=== PATIENT | female | born 1990 ===

== ENCOUNTER 2016-08-18 17:02 | Emergency (ER) | payer OTHER ==
[2016-08-18 17:07] VITALS: BP 157/82; PULSE 78; RESP 16; TEMP 98.2; O2SAT 98
[2016-08-18] MEDS ORDERED: Alum-Mag Hydrox-Simethicone Susp (30 mL) PO STA (17:28)
[2016-08-18] MEDS ORDERED: Pantoprazole 40 mg EC Tab PO STA (17:28)
[2016-08-18] MEDS ORDERED: Alum-Mag Hydrox-Simethicone Susp (30 mL) ONE (17:41)
[2016-08-18] MEDS ORDERED: Pantoprazole 40 mg EC Tab PO ONE (17:41)
[2016-08-18 17:50] LABS: BASO # 0.1 K/uL (0.0-0.2); BASO % 0.8 % (0.0-2.0); EOS # 0.1 K/uL (0.0-0.7); EOS % 1.4 % (0.0-4.0); HEMATOCRIT 39.8 % (34.0-47.0); LYMPH % 32.2 % (20.0-40.0); MEAN CELL VOLUME 83.1 fl (81.0-99.0); MEAN CORPUSCULAR HEMOGLOBIN 26.7 pg (27.0-31.0); MEAN CORPUSCULAR HGB CONC 32.1 g/dL (33.0-37.0); MEAN PLATELET VOLUME 11.2 fl (7.2-11.7); MONO # 0.6 K/uL (0.0-0.8); MONO % 6.5 % (0.0-10.0); NEUT # 5.5 K/uL (1.8-7.0); NEUT % 59.1 % (50.0-75.0); NRBC % 0.2 % (0.0-0.0); RED CELL DISTRIBUTION WIDTH 14.8 % (11.5-14.5); WHITE BLOOD COUNT 9.3 K/uL (4.8-10.8)
[2016-08-18 17:57] LABS: ALB/GLOB RATIO 1.3 (1.0-2.1); ALKALINE PHOSPHATASE 79 U/L (38-126); ALT/SGPT 33 U/L (9-52); AST/SGOT 25 U/L (14-36); BILIRUBIN,TOTAL 0.9 mg/dl (0.2-1.3); BLOOD UREA NITROGEN 14 mg/dl (7-17); CALCIUM 9.8 mg/dL (8.4-10.2); CARBON DIOXIDE 22 mmol/L (22-30); CHLORIDE 105 mmol/L (98-107); GFR AFRICAN-AMERICAN > 60; GLUCOSE,RANDOM 91 mg/dL (65-105); LIPASE 558 U/L (23-300); POTASSIUM 3.8 MMOL/L (3.6-5.0); SODIUM 145 mmol/l (132-148); TOTAL PROTEIN 8.5 G/DL (6.3-8.2)
--- NOTE | 2016-08-18 18:12 | ED PDOC ---
HPI: Abdomen Time Seen by Provider: 08/18/16 17:19 Chief Complaint (Nursing): Abdominal Pain Chief Complaint (Provider): Abdominal Pain History/Exam Limitations: no limitations Onset/Duration Of Symptoms: Days (x1), Waxing/Waning, Intermittent Episodes Current Symptoms Are (Timing): Still Present Location Of Pain/Discomfort: RUQ Quality Of Discomfort: Sharp, Burning Associated Symptoms: Nausea. denies: Fever, Chills, Vomiting, Diarrhea, Loss Of Appetite, Urinary Symptoms Exacerbating Factors: None Alleviating Factors: None Additional Complaint(s): 26 year old female presents to ED with complaints of abdominal pain x1 day and has a past medical history of pancreatitis and GERD. Describes the pain as intermittent, waxing and waning, sharp RUQ pain. Further states that when pain intensity is waning, it feels like a burning sensation. Denies any exacerbating or mitigating factors. (+) nausea, (-) decreased appetite, vomiting, diarrhea, constipation, urinary symptoms, fever, or chills. Denies taking any medications. PCP: None GI: Dr. Lara (hasn't seen in 2 years) Past Medical History Reviewed: Historical Data, Nursing Documentation, Vital Signs Vital Signs: Last Vital Signs Temp 98.2 F 08/18/16 17:04 Pulse 78 08/18/16 17:04 Resp 16 08/18/16 17:04 BP 157/82 H 08/18/16 17:04 Pulse Ox 98 08/18/16 18:48 - Medical History PMH: GERD, Pancreatitis, Chronic Kidney Disease Denies: No Chronic Diseases - Surgical History Surgical History: ( x1) Denies: Endoscopy - Family History Family History: States: No Known Family Hx - Social History Current smoker - smoking cessation education provided: No Ex-Smoker (has not smoked in the last 12 months): No Alcohol: None Drugs: Denies - Home Medications Home Medications: Ambulatory Orders Medication Instructions Recorded Sulfamethoxazole/Trimethoprim 1 tab PO BID #12 tab 11/06/15 [Bactrim DS 800 mg-160 mg] Ciprofloxacin [Cipro] 1 tab PO BID #14 tab 08/18/16 Ondansetron ODT [Zofran ODT] 1 odt PO Q6 PRN #30 odt 08/18/16 Pantoprazole [Protonix] 40 mg PO DAILY #30 ect 08/18/16 metroNIDAZOLE [Flagyl] 500 mg PO TID #30 tab 08/18/16 traMADol [Ultram] 50 mg PO TID PRN #15 dose 08/18/16 - Allergies Allergies/Adverse Reactions: Allergies Allergy/AdvReac Type Severity Reaction Status Date / Time No Known Allergies Allergy Verified 11/06/15 07:52 Review of Systems ROS Statement: Except As Marked, All Systems Reviewed And Found Negative Constitutional: Negative for: Fever, Chills Gastrointestinal: Positive for: Nausea, Abdominal Pain. Negative for: Vomiting , Diarrhea, Constipation, Other (decreased appetite) Genitourinary Female: Negative for: Dysuria, Frequency, Incontinence, Hematuria Physical Exam - Reviewed Nursing Documentation Reviewed: Yes Vital Signs Reviewed: Yes - Physical Exam Appears: Positive for: Non-toxic, In Acute Distress (mild painful distress) Head Exam: Positive for: ATRAUMATIC Skin: Positive for: Normal Color, Warm, Dry Eye Exam: Positive for: Normal appearance, EOMI, PERRL ENT: Positive for: Normal ENT Inspection Neck: Positive for: Normal Cardiovascular/Chest: Positive for: Regular Rate, Rhythm. Negative for: Murmur Respiratory: Positive for: Normal Breath Sounds. Negative for: Respiratory Distress Gastrointestinal/Abdominal: Positive for: Soft, Tenderness (RUQ TTP), Other ((+ ) Ortiz's, (-)McBurney's). Negative for: Distended Back: Positive for: Normal Inspection Extremity: Positive for: Normal ROM Neurologic/Psych: Positive for: Alert, Oriented. Negative for: Motor/Sensory Deficits - Laboratory Results Result Diagrams: 08/18/16 17:30 08/18/16 17:30 Urine dip results: Positive for: Ketones - ECG O2 Sat by Pulse Oximetry: 98 (RA) Pulse Ox Interpretation: Normal Medical Decision Making Medical Decision Makin Initial impression: RUQ pain DDx: Cholelithiasis, cholecystitis, pancreatitis, PUD, gastritis, hepatitis Initial plan: * Labs * Lipase * PTT/PT * Lidocaine 2% Viscous 10mL PO * Maalox Plus 30mL PO * Protonix EC Tab 40mg PO * Zofran Inj 4mg IVP * US ABDOMEN COMPLETE * Re-eval 1750 Urine shows trace ketones. Labs demonstrated mildly elevated lipase, otherwise no clinically significant lab abnormalities. GI cocktail did not improve meds. Pain improved after toradol and morphine. DW pt findings and plan of care. Strongly advised f/u Marco (GI), strict liquid diet. Rx Tramadol, Zofan, Protonix, Cipro, Flagyl. Scribe Attestation: Documented by Nohemi Soni acting as a scribe for Soraida Woodard MD. Scribe Attestation: All medical record entries made by the Scribe were at my direction and personally dictated by me. I have reviewed the chart and agree that the record accurately reflects my personal performance of the history, physical exam, medical decision making, and the department course for this patient. I have also personally directed, reviewed, and agree with the discharge instructions and disposition. Disposition - Clinical Impression Clinical Impression: Abdominal pain, Pancreatitis - Disposition Referrals: Kei Lara MD, PhD [Staff Provider] - Disposition: Routine/Home Disposition Time: 18:30 Condition: IMPROVED Additional Instructions: LIQUID DIET FOR 48 HOURS FOLLOW UP WITH DR LARA IN 1-2 DAYS RETURN TO ER FOR WORSENING SYMPTOMS Prescriptions: Ciprofloxacin [Cipro] 1 tab PO BID #14 tab metroNIDAZOLE [Flagyl] 500 mg PO TID #30 tab Pantoprazole [Protonix] 40 mg PO DAILY #30 ect traMADol [Ultram] 50 mg PO TID PRN #15 dose PRN Reason: SEVERE PAIN ONLY Ondansetron ODT [Zofran ODT] 1 odt PO Q6 PRN #30 odt PRN Reason: Nausea/Vomiting Instructions: Pancreatitis (ED) Forms: [facility] ED School/Work Excuse
[2016-08-18] MEDS ORDERED: Sodium Chloride 0.9% 1,000 ML IV STA (18:36)
--- NOTE | 2016-08-18 21:28 | US ---
HISTORY: abd pain RUQ COMPARISON: None. TECHNIQUE: Sonographic evaluation of the abdomen. FINDINGS: LIVER: Measures 14 cm. Normal echogenicity of the liver parenchyma. No intrahepatic bile duct dilatation. GALLBLADDER: Gallbladder is near completely collapsed. Apparent wall thickening of the gallbladder could be related to underdistention. No pericholecystic fluid. According to the technologist, the sonographic Ortiz's sign was not present. COMMON BILE DUCT: Measures 2-3 mm. No stones. No dilatation. PANCREAS: Visualized portions of the pancreas appear unremarkable. RIGHT KIDNEY: Measures 12 x 5 x 5.8cm. Normal echogenicity. No calculus, mass, or hydronephrosis. LEFT KIDNEY: Measures 12.8 x 6 x 6cm. Normal echogenicity. No calculus, mass, or hydronephrosis. SPLEEN: Normal in size and contour. No mass. AORTA: No aneurysmal dilatation within the visualized segments of the aorta. IVC: The visualized portions of the IVC appear unremarkable. OTHER FINDINGS: The visualized segments of the portal vein appear patent. IMPRESSION: No acute findings. Contracted gallbladder.
== END 2016-08-18 20:02 | disposition home or self-care (01) ==
LOC: H.ER 17:02
DX: K85.90 Acute pancreatitis without necrosis or infection, unspecified (principal); R11.0 Nausea; K21.9 Gastro-esophageal reflux disease without esophagitis; R10.11 Right upper quadrant pain; N18.9 Chronic kidney disease, unspecified

== ENCOUNTER 2017-08-21 07:46 | Emergency (ER) | payer OTHER ==
[2017-08-21 07:46] VITALS: BMI 32.9
[2017-08-21 07:51] VITALS: BP 129/74; PULSE 100; RESP 20; TEMP 98.9; O2SAT 100
[2017-08-21] MEDS ORDERED: Sodium Chloride 0.9% 1,000 ML IV STA (08:42)
[2017-08-21 09:12] LABS: BASO % 0.5 % (0.0-2.0); EOS # 0.1 K/uL (0.0-0.7); HEMOGLOBIN 12.4 g/dL (12.0-16.0); LYMPH # 0.8 K/uL (1.0-4.3); LYMPH % 9.8 % (20.0-40.0); MEAN CELL VOLUME 81.8 fl (81.0-99.0); MEAN CORPUSCULAR HEMOGLOBIN 27.2 pg (27.0-31.0); MEAN CORPUSCULAR HGB CONC 33.2 g/dL (33.0-37.0); MEAN PLATELET VOLUME 11.8 fl (7.2-11.7); MONO # 0.5 K/uL (0.0-0.8); MONO % 6.5 % (0.0-10.0); NEUT # 6.5 K/uL (1.8-7.0); NEUT % 82.2 % (50.0-75.0); PLATELET COUNT 178 K/uL (130-400); RBC 4.56 Mil/uL (3.80-5.20); RED CELL DISTRIBUTION WIDTH 14.3 % (11.5-14.5); WHITE BLOOD COUNT 7.9 K/uL (4.8-10.8)
--- NOTE | 2017-08-21 09:12 | ED PDOC ---
History of Present Illness History of Present Illness: Xiomara Lakhani is a 27 year old female, with a past medical history of asthma, who presents to the emergency department complaining of body aches, chills, congestion, headache, sore throat and cough onset since this morning. Patient also reports feeling hot but is unsure if she has a fever. She states her dad was sick a few days ago with similar symptoms. She did not receive a flu shot this year. She denies any abdominal pain, nausea, vomit, diarrhea, chest pain or shortness of breath. No further medical complaints. PMD: None provided. HPI: Influenza Time Seen by Provider: 08/21/17 08:20 Chief Complaint: Cough, Cold, Congestion Chief Complaint (Provider): Cough, cold, congestion History Per: Patient Exam Limitations: no limitations Onset/Duration Of Symptoms: Hrs (today) Symptoms include: headache, bodyaches, sore throat, cough, nasal congestion, other (chills). denies: fever, vomiting, diarrhea, chest pain, difficulty breathing Sick Contacts (Context): Family Member(s) (father) Hx Influenza Vaccination: No Past Medical History Reviewed: Historical Data, Nursing Documentation, Vital Signs Vital Signs: Last Vital Signs Temp 98.9 F 08/21/17 07:48 Pulse 100 H 08/21/17 07:48 Resp 20 08/21/17 07:48 BP 129/74 08/21/17 07:48 Pulse Ox 100 08/21/17 07:48 - Medical History PMH: Asthma, GERD, Pancreatitis, Chronic Kidney Disease - Surgical History Surgical History: ( x1) Denies: Endoscopy - Family History Family History: States: Unknown Family Hx - Social History Current smoker - smoking cessation education provided: No Alcohol: None Drugs: Denies - Home Medications Home Medications: Ambulatory Orders Medication Instructions Recorded Oseltamivir [Tamiflu] 75 mg PO BID #10 cap 08/21/17 - Allergies Allergies/Adverse Reactions: Allergies Allergy/AdvReac Type Severity Reaction Status Date / Time No Known Allergies Allergy Verified 11/06/15 07:52 Review of Systems ROS Statement: Except As Marked, All Systems Reviewed And Found Negative Constitutional: Positive for: Chills, Other (body aches). Negative for: Fever ENT: Positive for: Nose Congestion, Throat Pain Cardiovascular: Negative for: Chest Pain Respiratory: Positive for: Cough. Negative for: Shortness of Breath Gastrointestinal: Negative for: Nausea, Vomiting, Abdominal Pain, Diarrhea Neurological: Positive for: Headache Physical Exam - Reviewed Nursing Documentation Reviewed: Yes Vital Signs Reviewed: Yes - Physical Exam Appears: Positive for: Well (comfortable), Non-toxic, No Acute Distress Head Exam: Positive for: ATRAUMATIC, NORMAL INSPECTION, NORMOCEPHALIC Skin: Positive for: Normal Color, Warm, Dry Eye Exam: Positive for: Normal appearance, EOMI, PERRL Neck: Positive for: Painless ROM, Supple Cardiovascular/Chest: Positive for: Regular Rate, Rhythm. Negative for: Murmur Respiratory: Positive for: Normal Breath Sounds (clear to auscultation). Negative for: Respiratory Distress Gastrointestinal/Abdominal: Positive for: Normal Exam, Soft. Negative for: Tenderness, Guarding, Rebound Extremity: Positive for: Normal ROM (upper and lower extremities). Negative for : Tenderness, Deformity, Swelling Neurologic/Psych: Positive for: Alert, Oriented Medical Decision Making Medical Decision Making: Initial Impression: Flu-like symptoms, pharyngitis. Differential includes influenza and strep Initial Plan: --BMP --Urine dipstick --Urine --CBC w/ differential --Tylenol 325 mg tab 650 mg PO --Toradol 30 mg IVP --Sodium Chloride 1,000 ml IV 1,000 mls/hr --Influenza A B --Rapid Strep Group A Antigen --Reevaluation 11:15 -Patient report significant improvement. Tested positive for influenza. Scribe Attestation: Documented by Galo Young, acting as a scribe for Mery Cardona MD Provider Scribe Attestation: All medical record entries made by the Scribe were at my direction and personally dictated by me. I have reviewed the chart and agree that the record accurately reflects my personal performance of the history, physical exam, medical decision making, and the department course for this patient. I have also personally directed, reviewed, and agree with the discharge instructions and disposition. - Laboratory Results Result Diagrams: 08/21/17 09:03 08/21/17 09:03 - ECG O2 Sat by Pulse Oximetry: 100 (RA) Pulse Ox Interpretation: Normal Disposition - Clinical Impression Clinical Impression: Influenza - Patient ED Disposition Is Patient to be Admitted: No Doctor Will See Patient In The: Office Counseled Patient/Family Regarding: Studies Performed, Diagnosis, Need For Followup - Disposition Referrals: [facility] [Outside] Disposition: Routine/Home Disposition Time: 11:20 Condition: GOOD Additional Instructions: Take your medications as instructed. Follow up with your PCP in 2-3 days. Prescriptions: Oseltamivir [Tamiflu] 75 mg PO BID #10 cap Instructions: Flu, Adult (DC) Forms: [facility] ED School/Work Excuse
[2017-08-21 10:53] LABS: BLOOD UREA NITROGEN 9 mg/dl (7-17); CALCIUM 8.8 mg/dL (8.4-10.2); GFR AFRICAN-AMERICAN > 60; GFR NON-AFRICAN AMERICAN > 60
[2017-08-21 11:01] LABS: BASOPHIL 1 % (0-2); EOSINOPHIL 3 % (0-7); LYMPHOCYTE 8 % (20-50); MONOCYTE 6 % (0-10); NEUTROPHIL 82 % (42-75); TOTAL CELLS COUNTED 100
[2017-08-21 11:38] LABS: PLATELET ESTIMATE NORMAL (NORMAL)
== END 2017-08-21 11:34 | disposition home or self-care (01) ==
LOC: H.ER 07:46
DX: J09.X2 Influenza due to identified novel influenza A virus with other respiratory manifestations (principal); J45.909 Unspecified asthma, uncomplicated; K21.9 Gastro-esophageal reflux disease without esophagitis
CPT/HCPCS: 80048; 81025; 85025; 87070; 87430; 87804; 96374; 99282; J1885; J7040

== ENCOUNTER 2017-11-22 11:08 | Emergency (ER) | payer OTHER ==
[2017-11-22 11:08] VITALS: BMI 32.9
--- NOTE | 2017-11-22 11:45 | ED PDOC ---
Lower Extremity Pain/Injury Time Seen by Provider: 11/22/17 11:23 Chief Complaint (Nursing): Lower Extremity Problem/Injury Chief Complaint (Provider): Lower Extremity Problem/Injury History Per: Patient History/Exam Limitations: no limitations Onset/Duration Of Symptoms: Days (x today) Current Symptoms Are (Timing): Still Present Additional Complaint(s): 27-year-old female presents to ED with right calf pain. Pt reports she was in the middle of her kickboxing exercise at the gym where she felt a popping sensation to the medial aspect of the right calf. Pt reports she was doing kicks when this happened. No prior trauma. Pt reports severe pain in that area. Pt denies taking medications for pain. No other medical problems. PMD: No Family Provider Past Medical History Reviewed: Historical Data, Nursing Documentation, Vital Signs Vital Signs: Last Vital Signs Temp Pulse Resp BP Pulse Ox 98 11/22/17 11:13 - Medical History PMH: Asthma, GERD, Pancreatitis, Chronic Kidney Disease - Surgical History Surgical History: ( x1) Denies: Endoscopy - Family History Family History: States: Unknown Family Hx - Social History Current smoker - smoking cessation education provided: No Alcohol: None Drugs: Denies - Immunization History Hx Influenza Vaccination: No - Home Medications Home Medications: Ambulatory Orders Medication Instructions Recorded Oseltamivir [Tamiflu] 75 mg PO BID #10 cap 08/21/17 Ketorolac Tromethamine [Toradol] 10 mg PO Q6H PRN #19 tab 11/22/17 - Allergies Allergies/Adverse Reactions: Allergies Allergy/AdvReac Type Severity Reaction Status Date / Time No Known Allergies Allergy Verified 11/22/17 11:12 Review of Systems ROS Statement: Except As Marked, All Systems Reviewed And Found Negative Constitutional: Negative for: Fever Musculoskeletal: Positive for: Other ((+) calf pain) Neurological: Negative for: Numbness, Dizziness, Other (tingling) Physical Exam - Reviewed Nursing Documentation Reviewed: Yes Vital Signs Reviewed: Yes - Physical Exam Extremity: Positive for: Other (R lower Extremity: (+) Mild swelling, (+) Tenderness to Medial aspect of right calf, (-) ecchymosis or rash) - Laboratory Results Urine POC: Negative - ECG O2 Sat by Pulse Oximetry: 98 (RA) Pulse Ox Interpretation: Normal - Radiology X-Ray: Read By Radiologist X-Ray Interpretation: Other (gastroc tear) - Physician Consult Information Physician Contacted: Baltazar Adamson (crutches and followup) Medical Decision Making Medical Decision Making: Time: 11:34 Impressions(s): acute calf pain r/o muscle tear Plan: - Toradol 30 mg IV - Ultrasound Extremity Non-Vascular COM (-) Urine Scribe Attestation: Documented by Joshua Webb, acting as a scribe for Yoselin Degroot MD. Provider Scribe Attestation: All medical record entries made by the Scribe were at my direction and personally dictated by me. I have reviewed the chart and agree that the record accurately reflects my personal performance of the history, physical exam, medical decision making, and the department course for this patient. I have also personally directed, reviewed, and agree with the discharge instructions and disposition. Disposition - Clinical Impression Clinical Impression: Gastrocnemius tear - Patient ED Disposition Is Patient to be Admitted: No Doctor Will See Patient In The: Office Counseled Patient/Family Regarding: Diagnosis, Need For Followup, Rx Given - Disposition Referrals: Baltzaar Adamson MD [Staff Provider] - Disposition: Routine/Home Disposition Time: 13:20 Condition: STABLE Prescriptions: Ketorolac Tromethamine [Toradol] 10 mg PO Q6H PRN #19 tab PRN Reason: Pain, Moderate (4-7) Instructions: Lower Extremity Muscle Strain Forms: [employer] ([place]), [facility] ED School/Work Excuse - POA Present On Arrival: None, Falls Or Trauma
[2017-11-22 14:12] VITALS: BP 120/85; PULSE 75; RESP 16; O2SAT 100
--- NOTE | 2017-11-24 08:49 | US ---
Right lower extremity ultrasound (nonvascular), limited History: Right lower extremity pain. Technique: Real-time ultrasound evaluation of right lower extremity with Doppler. Comparison: None. Findings: There is a poorly defined fluid collection in the medial right gastrocnemius muscle measuring 6 millimeters. This collection does not seen to connect with any vascular structure. Doppler imaging does not demonstrate any vascularity. Comparison to the left gastrocnemius muscle in the corresponding location was made. Impression: Limited evaluation of the right calf region demonstrates a 6 millimeter fluid collection in the region of the right gastrocnemius muscle. This could represent a small tear in the muscle with corresponding intramuscular collection. Correlation with MRI would be helpful. Please note that this is not a vascular study and underlying venous structures are not evaluated. Please note that this report is in general agreement with the preliminary report provided by [facility].
== END 2017-11-22 14:13 | disposition home or self-care (01) ==
LOC: H.ER 11:08
DX: J45.909 Unspecified asthma, uncomplicated (principal); N18.9 Chronic kidney disease, unspecified
CPT/HCPCS: 76881; 81025; 99283; J1885; J2270